=== PATIENT | male | born 1935 | race Caucasian/White ===

== ENCOUNTER 2020-07-12 10:01 | Outpatient (CLI) | payer MEDICARE, OTHER, SELFPAY ==
--- NOTE | 2020-07-12 10:13 | USCV_ITS ---
Bc Aponte Age: 84 Gender: M : 1935 Exam Date: 07/12/2020 10:51 Ordering Phys: Diana Pedraza Technologist: Diana Rinaldi Exam Location: [facility] [place] Indication: S/p AVR, CAD BP: 140 / 74 HR: 55 Rhythm: Sinus bradycardia Technical Quality: Suboptimal MEASUREMENTS (Male / Female) Normal Values 2D ECHO LV Diastolic Diameter PLAX 4.4 cm 4.2 - 5.9 / 3.9 - 5.3 cm LV Systolic Diameter PLAX 3.5 cm LV Chamber Size 4.2 cm IVS Diastolic Thickness 2.1 cm 0.6 - 1.0 / 0.6 - 0.9 cm IVS Systolic Thickness 2.6 cm LVPW Diastolic Thickness 1.1 cm 0.6 - 1.0 / 0.6 - 0.9 cm LVPW Systolic Thickness 1.1 cm RV Chamber Size 2.9 cm LVOT Diameter 2.0 cm LV Ejection Fraction 2D Teich 43.6 % LV Ejection Fraction MOD 2C 55.9 % LV Ejection Fraction 2C AL 56.9 % LA Diameter 2.4 cm LA Width 3.3 cm LA Height 4.7 cm RA Width 2.3 cm RA Height 4.9 cm Aorta at Sinotubular Diameter 2.4 cm M-MODE LV Diastolic Diameter MM 5.2 cm 4.2 - 5.9 / 3.9 - 5.3 cm LV Systolic Diameter MM 3.6 cm LV Ejection Fraction MM Teich 58.1 % IVS Diastolic Thickness MM 1.6 cm 0.6 - 1.0 / 0.6 - 0.9 cm IVS Systolic Thickness MM 2.1 cm LVPW Diastolic Thickness MM 1.8 cm 0.6 - 1.0 / 0.6 - 0.9 cm LVPW Systolic Thickness MM 1.6 cm Aortic Annulus Diameter 2.6 cm LA Ao Ratio MM 1.1 MV E Point Septal Separation 1.1 cm DOPPLER AV Peak Velocity 249.3 cm/s LVOT Peak Velocity 74.0 cm/s AV Area Cont Eq vti 1.6 cm squared AV Area Cont Eq pk 1.0 cm squared MV Area PHT 5.0 cm squared Mitral E to A Ratio 0.7 MV E' Velocity 30.0 cm/s Mitral E to MV E' Ratio 10.1 Mitral E to LV E' Lateral Ratio 8.8 Mitral E to LV E' Septal Ratio 11.8 TV Peak E Velocity 51.0 cm/s Right Atrial Pressure 3.0 mmHg FINDINGS Left Ventricle Normal left ventricular size. LV systolic function is borderline low with EF of 45-50 %. Borderline global hypokinesis is noted. Mild LVH is noted. Grade 1 diastolic dysfunction is present. Right Ventricle The right ventricle is normal in size and function. Right Atrium The right atrium is normal in size. Left Atrium The left atrium is normal in size. Mitral Valve Thickened mitral valve. No significant stenosis or prolapse. There is no mitral regurgitation. Aortic Valve Aortic valve is not well-visualized. No significant aortic regurgitation is present. There is mild aortic stenosis with aortic valve area of 1.53 cm squared and a mean gradient across the valve of 13.6 mmHg. Tricuspid Valve Structurally normal tricuspid valve without significant stenosis or regurgitation. Insufficient TR jet to calculate RVSP. Pulmonic Valve Structurally normal pulmonic valve without significant stenosis. There is no pulmonic regurgitation. Pericardium Normal pericardium without effusion. Aorta Normal ascending aorta dimension. CONCLUSIONS LV systolic function is mildly reduced with EF of 40 to 45%. Mild global hypokinesis is present. Grade 1 diastolic dysfunction is present. Aortic valve is not very well visualized however based on Doppler findings, mild aortic stenosis is present with aortic valve area of 1.53 cm squared and mean gradient across the valve 13.6 mmHg. Compared to prior echocardiogram from 05/22/2015, LV systolic function is slightly decreased. Grade 1 diastolic dysfunction is present now. Omid Vera MD (Electronically Signed) Final Date: 14 July 2020 18:15 S
== END 2020-07-12 10:02 | disposition home or self-care (01) ==
LOC: RAD 10:08
PROVIDERS: PCP Family Medicine; Visit Provider Nurse Practitioner Family
DX: Z95.2 Presence of prosthetic heart valve (principal); I25.10 Atherosclerotic heart disease of native coronary artery without angina pectoris; R00.1 Bradycardia, unspecified
CPT/HCPCS: 93306